=== PATIENT | female | born 1960 | race Hispanic/Latino ===

== ENCOUNTER → 2022-10-22 | Outpatient (CLI) | payer OTHER ==
[2022-10-22 13:06] LABS: CHOLESTEROL 150 mg/dL (<200); HDL CHOLESTEROL 52 mg/dL (35-85); LDL DIRECT 81 mg/dL (0-99); TRIGLYCERIDES 135 mg/dL (30-200)
== END | disposition home or self-care (01) ==
LOC: LAB 10-21 15:19
PROVIDERS: ATTEND Internal Medicine Cardiovascular Disease
DX: E78.5 Hyperlipidemia, unspecified (principal)
CPT/HCPCS: 36415; 80061